=== PATIENT | female | born 1960 | race Caucasian/White ===

== ENCOUNTER 2017-05-18 12:50 | Emergency (ER) | payer MEDICAID ==
[~2017-05-18] VITALS: Ht 160 cm; Wt 68.2 kg
[2017-05-18 14:42] VITALS: BP 136/53
[2017-05-18] MEDS ORDERED: normal saline 1000ML IV soln IV ONE (15:40)
[2017-05-18] MEDS ORDERED: vancomycin/NS 1 GM ADD-VANTAGE 250 ML IV ONE (15:40)
[2017-05-18] MEDS ORDERED: CefTRIAXone 2gm/NS 100ml IVPB 100 ML IV ONE (15:40)
[2017-05-18] MEDS ORDERED: iohexol 300mg/ml 100ml inj. ONE (15:54)
[2017-05-18 16:09] LABS: BASOPHILS % (AUTO) 0.4 % (0-1); EOSINOPHILS # (AUTO) 0.3 X10'3 (0-0.9); EOSINOPHILS % (AUTO) 2.5 % (0-6); HEMATOCRIT 34.4 % (35.0-45.0); HEMOGLOBIN 11.3 g/dl (12.0-16.0); LYMPHOCYTES # (AUTO) 2.3 X10'3 (1.1-4.8); LYMPHOCYTES % (AUTO) 20.9 % (21-51); MEAN CORPUSCULAR HEMOGLOBIN 27.4 PG (27.0-31.0); MEAN CORPUSCULAR HGB CONC 32.8 % (33.0-36.5); MEAN CORPUSCULAR VOLUME 83.4 FL (78-98); MEAN PLATELET VOLUME 6.4 FL (7.4-10.4); MONOCYTES # (AUTO) 0.9 X10'3 (0-0.9); MONOCYTES % (AUTO) 7.7 % (2-12); NEUTROPHILS # (AUTO) 7.6 X10'3 (1.8-7.7); NEUTROPHILS % (AUTO) 68.5 % (42-75); PLATELET COUNT 546 X10'3 (140-440); RED BLOOD COUNT 4.13 X10'6 (4.20-5.60); RED CELL DISTRIBUTION WIDTH 14.7 % (11.5-14.5); WHITE BLOOD COUNT 11.1 X10'3 (4.5-11.0)
[2017-05-18 16:23] LABS: ALANINE AMINOTRANSFERASE 20 U/L (12-78); ALBUMIN 2.8 G/DL (3.4-5.0); ALBUMIN/GLOBULIN RATIO 0.5 (1.1-1.5); ALKALINE PHOSPHATASE 165 IU/L (46-116); ANION GAP 10 (8-16); ASPARTATE AMINO TRANSFERASE 23 U/L (10-37); BILIRUBIN,TOTAL 0.3 MG/DL (0.1-1.0); BLOOD UREA NITROGEN 9 MG/DL (7-18); BUN/CREATININE RATIO 15.5 (6.6-38.0); CALCIUM 9.5 MG/DL (8.5-10.1); CHLORIDE 100 MMOL/L (99-107); CREATININE 0.58 MG/DL (0.40-0.90); GLUCOSE 80 MG/DL (70-104); MAGNESIUM 1.9 MG/DL (1.5-2.4); SODIUM 140 MMOL/L (135-145); TOTAL CARBON DIOXIDE 30.3 MMOL/L (24-32); TOTAL PROTEIN 8.6 G/DL (6.4-8.2); eGFR > 90 ML/MIN
[2017-05-18 16:28] LABS: POTASSIUM 2.4 MMOL/L (3.5-5.1)
[2017-05-18] MEDS ORDERED: potassium Cl 20 mEq SR tablet PO ONE ×2 (16:30→19:15)
[2017-05-18] MEDS ORDERED: CefTRIAXone/dextrose 2GM bag 50 ML IV ONE (16:32)
[2017-05-18 16:33] LABS: CLARITY,URINE Clear (Clear); COLOR,URINE Yellow (Yellow); GLUCOSE, URINE Negative (Neg); KETONES,URINE Negative (Neg); LEUKOCYTE ESTERASE ,URINE Trace (Neg); NITRITES, URINE Negative (Neg); OCCULT BLOOD,URINE Negative (Neg); PROTEIN,URINE Negative (Neg); UROBILINOGEN,URINE 0.2 E.U/dL (0.2-1.0)
[2017-05-18 16:43] LABS: UA COLLECTION TYPE CLN CATCH MIDSTREAM
[2017-05-18 16:45] LABS: BACTERIA,URINE NONE SEEN /HPF (Neg); RBC,URINE NONE SEEN /HPF (0-2); SQUAMOUS EPITHELIAL CELL,UR FEW /LPF (FEW); WBC,URINE 0-4 /HPF (0-4)
[2017-05-18 16:46] LABS: YEAST FEW /HPF (NEGATIVE)
[2017-05-18 16:52] LABS: PARTIAL THROMBOPLASTIN TIME 34 SECONDS (22-32); PROTHROMBIN TIME 10.7 SECONDS (9.0-12.0)
[2017-05-18] MEDS: potassium 10mEq/100ml NS w/LIDOcaine (10mg/bag) IV SCH ×2 (17:30→18:01)
[2017-05-18] MEDS ORDERED: CEPH500C5 PO (19:17)
[2017-05-18] MEDS ORDERED: HYDR-3965 PO (19:17)
[2017-05-18] MEDS ORDERED: POTA10TA10 PO (19:17)
[2017-05-18] MEDS ORDERED: SULF1TAB49 PO (19:17)
[2017-05-18] MEDS ORDERED: HYDROcodone/acetaminophen 5mg/325mg tablet PO ONE (19:20)
[2017-05-18] MEDS ORDERED: potassium 10mEq/100ml NS w/LIDOcaine (10mg/bag) IV ONE (19:40)
== END 2017-05-18 21:14 | disposition home or self-care (01) ==
LOC: ER 12:53
DX: L02.415 Cutaneous abscess of right lower limb (principal); E87.6 Hypokalemia; E03.9 Hypothyroidism, unspecified; E78.00 Pure hypercholesterolemia, unspecified; E11.9 Type 2 diabetes mellitus without complications; G89.29 Other chronic pain; Z88.5 Allergy status to narcotic agent
CPT/HCPCS: 10060; 36415; 73701; 80053; 81001; 83605; 83735; 84145; 85025; 85610; 85730; 87040; 87077; 87088; 87186; 96365; 96367; 99285; A6449; J0696; J3370; J3480; J7030; Q9967; 96366

== ENCOUNTER 2017-07-04 18:19 | Inpatient (IN) | payer MEDICAID ==
[~2017-07-04] VITALS: Ht 167.6 cm; Wt 54.0 kg
[~2017-07-04 18:19] MED LIST: CEPH500C5 PO
[2017-07-04] MEDS ORDERED: acetaminophen 325mg tablet PO STA (18:44)
[2017-07-04] MEDS ORDERED: morphine 2 MG/ML inj. syringe IV ONE (18:45)
[2017-07-04] MEDS ORDERED: normal saline 1000ML IV soln IV ONE (18:45)
[2017-07-04 19:13] LABS: BASOPHILS % (AUTO) 0 % (0-1); EOSINOPHILS # (AUTO) 0.2 X10'3 (0-0.9); EOSINOPHILS % (AUTO) 1.5 % (0-6); HEMATOCRIT 32.2 % (35.0-45.0); HEMOGLOBIN 10.8 g/dl (12.0-16.0); LYMPHOCYTES # (AUTO) 1.2 X10'3 (1.1-4.8); LYMPHOCYTES % (AUTO) 7.6 % (21-51); MEAN CORPUSCULAR HEMOGLOBIN 28.4 PG (27.0-31.0); MEAN CORPUSCULAR HGB CONC 33.6 % (33.0-36.5); MEAN CORPUSCULAR VOLUME 84.5 FL (78-98); MEAN PLATELET VOLUME 5.7 FL (7.4-10.4); MONOCYTES # (AUTO) 0.5 X10'3 (0-0.9); MONOCYTES % (AUTO) 3.3 % (2-12); NEUTROPHILS # (AUTO) 13.6 X10'3 (1.8-7.7); NEUTROPHILS % (AUTO) 87.6 % (42-75); PLATELET COUNT 684 X10'3 (140-440); RED BLOOD COUNT 3.81 X10'6 (4.20-5.60); RED CELL DISTRIBUTION WIDTH 17.5 % (11.5-14.5); WHITE BLOOD COUNT 15.5 X10'3 (4.5-11.0)
[2017-07-04 19:31] LABS: ALANINE AMINOTRANSFERASE 14 U/L (12-78); ALBUMIN/GLOBULIN RATIO 0.4 (1.1-1.5); ALKALINE PHOSPHATASE 131 IU/L (46-116); ANION GAP 7 (8-16); ASPARTATE AMINO TRANSFERASE 14 U/L (10-37); BILIRUBIN,TOTAL 0.3 MG/DL (0.1-1.0); BLOOD UREA NITROGEN 8 MG/DL (7-18); BUN/CREATININE RATIO 16.3 (6.6-38.0); CALCIUM 8.5 MG/DL (8.5-10.1); CHLORIDE 102 MMOL/L (99-107); CREATININE 0.49 MG/DL (0.40-0.90); GLUCOSE 88 MG/DL (70-104); MAGNESIUM 1.9 MG/DL (1.5-2.4); SODIUM 142 MMOL/L (135-145); TOTAL CARBON DIOXIDE 32.7 MMOL/L (24-32); TOTAL PROTEIN 7.3 G/DL (6.4-8.2); eGFR > 90 ML/MIN
[2017-07-04 19:36] LABS: POTASSIUM 2.4 MMOL/L (3.5-5.1)
[2017-07-04 19:37] LABS: CLARITY,URINE CLEAR (Clear); COLOR,URINE AMBER (Yellow); GLUCOSE, URINE NEGATIVE (Neg); KETONES,URINE NEGATIVE (Neg); LEUKOCYTE ESTERASE ,URINE NEGATIVE (Neg); NITRITES, URINE NEGATIVE (Neg); OCCULT BLOOD,URINE TRACE-INTACT (Neg); PROTEIN,URINE TRACE mg/dl (Neg)
[2017-07-04 19:39] LABS: UA COLLECTION TYPE STRAIGHT CATH
[2017-07-04 19:43] LABS: INR 1.1 INR; PARTIAL THROMBOPLASTIN TIME 32 SECONDS (22-32); PROTHROMBIN TIME 10.9 SECONDS (9.0-12.0)
[2017-07-04 19:53] LABS: BACTERIA,URINE NONE SEEN /HPF (Neg); MUCUS STRANDS MODERATE /LPF (Neg); RBC,URINE 0-2 /HPF (0-2); SQUAMOUS EPITHELIAL CELL,UR FEW /LPF (FEW); WBC,URINE 0-4 /HPF (0-4)
[2017-07-04 20:19] LABS: TOTAL CELLS COUNTED 100
[2017-07-04 20:20] LABS: ANISOCYTOSIS 2+; PLATELET ESTIMATE INCREASED
[2017-07-04] MEDS ORDERED: Potassium Cl 40 MEQ in NS 500 ML IV ONE (20:20)
[2017-07-04] MEDS ORDERED: potassium Cl 40 mEq/NS 500ml IV ONE (20:20)
[2017-07-04] MEDS ORDERED: CefTRIAXone/D5W-Rocephin 1gm 50 ML IV ONE (22:30)
[2017-07-04] MEDS ORDERED: potassium Cl 20 mEq SR tablet PO STA (23:05)
[2017-07-04] MEDS ORDERED: magnesium Cl slow-release 64mg tablet PO PRN (23:05)
[2017-07-04] MEDS ORDERED: cefTRIAXone 1g/NS 100ml IVPB 100 ML IV ONE (23:20)
[2017-07-04] MEDS: morphine 2 MG/ML inj. syringe IV PRN (23:30)
[2017-07-05] MEDS: morphine 2 MG/ML inj. syringe IV PRN ×3 (00:50→21:04)
[2017-07-05 00:56] LABS: RHEUM FACTOR QUAL REFLEX TITER NEGATIVE (Neg)
[2017-07-05] MEDS ORDERED: magnesium hydroxide 30ml (MOM) UD suspension PO PRN (03:05)
[2017-07-05] MEDS ORDERED: mag hydrox/Alum hydrox/simeth 30ml oral suspension PO PRN (03:05)
[2017-07-05] MEDS ORDERED: acetaminophen 325mg tablet PO PRN (03:05)
[2017-07-05] MEDS ORDERED: ondansetron/PF 4mg/2ml inj IV PRN (03:05)
[2017-07-05] MEDS: LORazepam 2 mg/ml vial IV PRN (03:19)
[2017-07-05 04:12] VITALS: BP 110/41
[2017-07-05 06:00] VITALS: BP 104/43
[2017-07-05 06:06] LABS: MAGNESIUM 1.8 MG/DL (1.5-2.4)
[2017-07-05] MEDS: heparin, porcine 5000 units/ml vial SQ SCH ×2 (07:49→19:22)
[2017-07-05] MEDS: potassium Cl 20 mEq SR tablet PO PRN ×3 (09:01→19:22)
[2017-07-05 11:00] VITALS: BP 90/53
[2017-07-05] MEDS: cefTRIAXone 1g/NS 100ml IVPB 100 ML IV SCH (12:30)
[2017-07-05 12:52] LABS: CLARITY,URINE SLIGHTLY CLOUDY (Clear); COLOR,URINE YELLOW (Yellow); GLUCOSE, URINE NEGATIVE (Neg); KETONES,URINE NEGATIVE (Neg); LEUKOCYTE ESTERASE ,URINE SMALL (Neg); NITRITES, URINE NEGATIVE (Neg); OCCULT BLOOD,URINE TRACE-INTACT (Neg); PROTEIN,URINE NEGATIVE (Neg); UROBILINOGEN,URINE 0.2 E.U/dL (0.2-1.0)
[2017-07-05 12:55] LABS: UA COLLECTION TYPE CLN CATCH MIDSTREAM
[2017-07-05 12:57] LABS: SQUAMOUS EPITHELIAL CELL,UR MODERATE /LPF (FEW); TRANSITIONAL EPI CELLS,URINE MANY /HPF
[2017-07-05 12:59] LABS: BACTERIA,URINE 2+ /HPF (Neg); WBC,URINE 20-30 /HPF (0-4)
[2017-07-05 13:17] LABS: URINE AMPHETAMINE SCREEN POSITIVE (Neg); URINE BARBITUATE SCREEN NEGATIVE (Neg); URINE BENZODIAZEPINES SCREEN POSITIVE (Neg); URINE CANNABINOID SCREEN POSITIVE (Neg); URINE COCAINE SCREEN NEGATIVE (Neg); URINE METHADONE SCREEN NEGATIVE (Neg); URINE OPIATE SCREEN POSITIVE (Neg); URINE PHENCYCLIDINE SCREEN NEGATIVE (Neg)
[2017-07-05 15:00] VITALS: BP 117/59
[2017-07-05 19:00] VITALS: BP 127/62
[2017-07-05 23:00] VITALS: BP 102/54
[2017-07-06 03:00] VITALS: BP 105/54
[2017-07-06] MEDS: LORazepam 2 mg/ml vial IV PRN (05:34)
[2017-07-06 06:00] VITALS: BP 111/52
[2017-07-06 06:05] LABS: MAGNESIUM 1.9 MG/DL (1.5-2.4)
[2017-07-06 07:24] LABS: ALANINE AMINOTRANSFERASE 23 U/L (12-78); ALBUMIN 1.6 G/DL (3.4-5.0); ALBUMIN/GLOBULIN RATIO 0.3 (1.1-1.5); ALKALINE PHOSPHATASE 138 IU/L (46-116); ANION GAP 8 (8-16); ASPARTATE AMINO TRANSFERASE 23 U/L (10-37); BILIRUBIN,TOTAL 0.4 MG/DL (0.1-1.0); BLOOD UREA NITROGEN 8 MG/DL (7-18); BUN/CREATININE RATIO 12.5 (6.6-38.0); CALCIUM 8.4 MG/DL (8.5-10.1); CHLORIDE 101 MMOL/L (99-107); CREATININE 0.64 MG/DL (0.40-0.90); GLUCOSE 99 MG/DL (70-104); POTASSIUM 4.3 MMOL/L (3.5-5.1); SODIUM 136 MMOL/L (135-145); TOTAL PROTEIN 6.8 G/DL (6.4-8.2); eGFR > 90 ML/MIN
[2017-07-06] MEDS: cefTRIAXone 1g/NS 100ml IVPB 100 ML IV SCH (07:49)
[2017-07-06] MEDS: heparin, porcine 5000 units/ml vial SQ SCH ×2 (07:49→19:12)
[2017-07-06] MEDS: lactobacillus rhamnosus 10,000 MMU CELLS/CAPSULE PO SCH ×2 (07:50→17:01)
[2017-07-06] MEDS: HYDROcodone/acetaminophen 5mg/325mg tablet PO PRN ×3 (10:06→18:34)
[2017-07-06 11:00] VITALS: BP 104/49
[2017-07-06 15:00] VITALS: BP 104/50
[2017-07-06 19:00] VITALS: BP 114/50
[2017-07-06 23:00] VITALS: BP 133/66
[2017-07-07] MEDS: HYDROcodone/acetaminophen 5mg/325mg tablet PO PRN ×4 (00:02→14:50)
[2017-07-07 03:00] VITALS: BP 93/45
[2017-07-07 05:29] LABS: BASOPHILS % (AUTO) 0.3 % (0-1); EOSINOPHILS # (AUTO) 0.3 X10'3 (0-0.9); EOSINOPHILS % (AUTO) 2.6 % (0-6); HEMATOCRIT 29.2 % (35.0-45.0); HEMOGLOBIN 9.9 g/dl (12.0-16.0); LYMPHOCYTES # (AUTO) 1.2 X10'3 (1.1-4.8); MEAN CORPUSCULAR HEMOGLOBIN 28.2 PG (27.0-31.0); MEAN CORPUSCULAR HGB CONC 33.9 % (33.0-36.5); MEAN CORPUSCULAR VOLUME 83.2 FL (78-98); MEAN PLATELET VOLUME 5.8 FL (7.4-10.4); MONOCYTES # (AUTO) 0.5 X10'3 (0-0.9); MONOCYTES % (AUTO) 4.5 % (2-12); NEUTROPHILS # (AUTO) 9.1 X10'3 (1.8-7.7); NEUTROPHILS % (AUTO) 81.6 % (42-75); PLATELET COUNT 647 X10'3 (140-440); RED CELL DISTRIBUTION WIDTH 17.5 % (11.5-14.5); WHITE BLOOD COUNT 11.2 X10'3 (4.5-11.0)
[2017-07-07 05:55] LABS: ALANINE AMINOTRANSFERASE 16 U/L (12-78); ALBUMIN 1.6 G/DL (3.4-5.0); ALBUMIN/GLOBULIN RATIO 0.3 (1.1-1.5); ALKALINE PHOSPHATASE 137 IU/L (46-116); ANION GAP 5 (8-16); ASPARTATE AMINO TRANSFERASE 21 U/L (10-37); BILIRUBIN,TOTAL 0.2 MG/DL (0.1-1.0); BLOOD UREA NITROGEN 9 MG/DL (7-18); BUN/CREATININE RATIO 15.5 (6.6-38.0); CALCIUM 8.4 MG/DL (8.5-10.1); CHLORIDE 101 MMOL/L (99-107); CREATININE 0.58 MG/DL (0.40-0.90); GLUCOSE 90 MG/DL (70-104); MAGNESIUM 1.8 MG/DL (1.5-2.4); POTASSIUM 4.3 MMOL/L (3.5-5.1); SODIUM 135 MMOL/L (135-145); TOTAL CARBON DIOXIDE 28.9 MMOL/L (24-32); eGFR > 90 ML/MIN
[2017-07-07] MEDS: LORazepam 2 mg/ml vial IV PRN ×2 (07:36→14:50)
[2017-07-07] MEDS: cefTRIAXone 1g/NS 100ml IVPB 100 ML IV SCH (07:37)
[2017-07-07] MEDS: lactobacillus rhamnosus 10,000 MMU CELLS/CAPSULE PO SCH (07:37)
[2017-07-07] MEDS: heparin, porcine 5000 units/ml vial SQ SCH (07:38)
[2017-07-07 07:39] VITALS: BP 124/71
[2017-07-07 11:00] VITALS: BP 124/66
[2017-08-06] MEDS ORDERED: HYDR-565 PO (19:45)
== END 2017-07-07 15:05 | DRG 384 ==
LOC: ER 18:19 → ED HOLD 07-05 03:02 → PCU 3S 07-05 04:04
PROVIDERS: ADMIT Internal Medicine; ATTEND Internal Medicine
DX: S70.02XA Contusion of left hip, initial encounter (principal); I08.1 Rheumatic disorders of both mitral and tricuspid valves; N39.0 Urinary tract infection, site not specified; K08.89 Other specified disorders of teeth and supporting structures; E03.9 Hypothyroidism, unspecified; E78.00 Pure hypercholesterolemia, unspecified; E87.6 Hypokalemia; G89.29 Other chronic pain; M19.90 Unspecified osteoarthritis, unspecified site; W18.39XA Other fall on same level, initial encounter; Z87.891 Personal history of nicotine dependence; Y93.89 Activity, other specified; Y92.89 Other specified places as the place of occurrence of the external cause; Y99.8 Other external cause status; Z88.6 Allergy status to analgesic agent; Z88.8 Allergy status to other drugs, medicaments and biological substances; Z98.891 History of uterine scar from previous surgery
CPT/HCPCS: 36415; 71045; 73502; 80053; 80305; 81001; 83605; 83735; 84132; 84145; 85025; 85610; 85730; 86430; 87040; 87070; 87088; 93005; 93306; 96361; 96365; 96366; 96368; 97116; 97162; 97530; 99285; A4310; A4353; A6213; J0696; J1644; J2060; J2270; J3480; J7030

== ENCOUNTER 2025-01-10 10:39 | Outpatient (CLI) | payer MEDICAID ==
--- NOTE | 2025-01-10 17:42 | RADIOLOGY REPORT ---
EXAM: US US NON VASCULAR INDICATION: LOCALIZED SWELLING, MASS AND LUMP, LEFT UPPER LIMB TECHNIQUE: Grayscale and color Doppler sonographic imaging evaluation of the region of concern. COMPARISON: None FINDINGS: At the left wrist, heterogeneous structure, nonvascular measuring 1.3 x 0.4 x 1.4 cm width slight thi ck-walled appearance and possible surrounding subcutaneous tissue edema. Consideration for complex fl uid collection. Differential includes abscess, hematoma, ganglion cysts. IMPRESSION: 1. Consideration for complex fluid collection. Differential includes abscess, hematoma, ganglion cys ts.
== END 2025-01-10 23:59 | disposition home or self-care (01) ==
LOC: RAD 10:39
PROVIDERS: ATTEND Physician Assistant Surgical
DX: R22.32 Localized swelling, mass and lump, left upper limb (principal); M25.562 Pain in left knee; M17.11 Unilateral primary osteoarthritis, right knee; M17.12 Unilateral primary osteoarthritis, left knee
CPT/HCPCS: 76881